=== PATIENT | female | born 1995 | race Caucasian/White ===

== ENCOUNTER 2024-06-19 21:56 | Emergency (ER) | payer OTHER ==
[2024-06-19 22:34] LABS: BILIRUBIN,URINE NEGATIVE (NEGATIVE); GLUCOSE, URINE (UA) NEGATIVE (NEGATIVE); KETONES,URINE (UA) NEGATIVE (NEGATIVE); LEUKOCYTE ESTERASE, URINE MODERATE (NEGATIVE); NITRITE,URINE NEGATIVE (NEGATIVE); OCCULT BLOOD,URINE NEGATIVE (NEGATIVE); PROTEIN,URINE NEGATIVE (NEGATIVE); UROBILINOGEN,URINE 1 (NORMAL) E.U./dL (NORMAL)
[2024-06-19 22:36] LABS: CLARITY,URINE HAZY (CLEAR)
[2024-06-19 22:37] LABS: HCG UR QUAL NEGATIVE
--- NOTE | 2024-06-19 22:56 | ED Physician Documentation ---
PD HPI FEMALE - Stated complaint Stated Complaint: ABD PX - Chief complaint Chief Complaint: Abd Pain - History obtained from History obtained from: Patient - History of Present Illness Timing - onset: How many days ago (few) Timing - duration: Days Timing - details: Gradual onset, Still present, Waxing and waning Associated symptoms: Pelvic pain, Vaginal bleeding (light spotting). No: Vaginal discharge PD PAST MEDICAL HISTORY - Past Medical History Past Medical History: No - Past Surgical History Past Surgical History: No - Allergies Allergies/Adverse Reactions: Allergies Allergy/AdvReac Type Severity Reaction Status Date / Time No Known Drug Allergies Allergy Verified 06/19/24 22:23 - Social History Does the pt smoke?: No Smoking Status: Never smoker PD ED PE NORMAL - Vitals Vital signs reviewed: Yes - General General: Alert and oriented X 3, No acute distress, Well developed/nourished - Female Female : Deferred, Other (bedside US by me showed normal uterus without intrauterine findings. No pelivc free fluid. ) - Back Back: No CVA TTP - Derm Derm: Normal color, Warm and dry Results - Vitals Vitals: Vital Signs - 24 hr 06/19/24 06/19/24 22:19 23:35 Temperature 36.5 C Heart Rate 82 78 Respiratory 16 16 Rate Blood Pressure 141/87 H 133/82 H O2 Saturation 100 99 Oxygen O2 Source Room air - Labs Labs: Laboratory Tests 06/19/24 22:24 Urine Color YELLOW Urine Clarity HAZY Urine pH 7.0 Ur Specific [place] 1.025 Urine Protein NEGATIVE Urine Glucose (UA) NEGATIVE Urine Ketones NEGATIVE Urine Occult Blood NEGATIVE Urine Nitrite NEGATIVE Urine Bilirubin NEGATIVE Urine Urobilinogen 1 (NORMAL) Ur Leukocyte Esterase MODERATE H Urine RBC 0-5 Urine WBC 6-10 H Ur Squamous Epith Cells MOD Squamous H Urine Bacteria Moderate H Urine Culture Comments NOT INDICATED Urine HCG, Qual NEGATIVE PD Medical Decision Making - ED course Complexity details: reviewed results (bedside US did not show any obvious in trauterine findings. No free fluid in pelvis. Limited US bedside as low suspicion for more serious process. Uterine cramping with faintly positive preg test at home few days ago and then negative the past 2 days. Negative here. ), considered differential (uterine pelvic cramping for few days. Denies vag discharge nor bleeding. ), d/w patient Departure - Departure Disposition: Home, Self Care Clinical Impression: Uterine cramping Condition: Stable Record reviewed to determine appropriate education?: Yes Instructions: ED Pelvic Pain [facility] Comments: Your test is negative here. Your urine does not show signs of infection. Limited bedside ultrasound appears normal uterus. At this point it does not look like . Potential could have been a "chemical " or just faults positive reading on the initial urine . Tylenol or ibuprofen as needed for cramps or pains. Forms: PCP List Discharge Date/Time: 06/19/24 23:35
[2024-06-19 22:57] LABS: RBC,URINE 0-5 /HPF (0-5)
[2024-06-19 22:58] LABS: BACTERIA,URINE Moderate /HPF (None Seen); SQUAMOUS EPITHELIAL CELL,UR MOD Squamous (<= Few)
[2024-06-19 23:43] VITALS: BP 133/82; O2SAT 99
== END 2024-06-19 23:35 | disposition home or self-care (01) ==
LOC: EDBD → ED 21:56
DX: N94.89 Other specified conditions associated with female genital organs and menstrual cycle (principal)
CPT/HCPCS: 81001; 81025; 87086; 99282; 99283